=== PATIENT | male | born 1960 | race Caucasian/White ===

== ENCOUNTER 2018-12-01 20:16 | Inpatient (IN) | payer MEDICARE, MEDICAID ==
[~2018-12-01] VITALS: Ht 182.9 cm; Wt 89.4 kg
[2018-12-01 22:21] VITALS: BP 136/100
[2018-12-01] MEDS ORDERED: LORazepam 2 MG TABLET PO PRN (23:15)
[2018-12-01] MEDS ORDERED: HALOPERIDOL 5 MG TABLET PO PRN (23:15)
[2018-12-01] MEDS ORDERED: ZOLPIDEM TARTRATE 10 MG TABLET PO PRN (23:15)
[2018-12-02 00:17] VITALS: BP 140/81
[2018-12-02] MEDS ORDERED: AMLO-512 PO (01:20)
[2018-12-02] MEDS ORDERED: ALBU8HFA IH (01:20)
[2018-12-02] MEDS ORDERED: DULO60CA44 PO (01:20)
[2018-12-02] MEDS ORDERED: TAMS-1 PO (01:20)
[2018-12-02] MEDS ORDERED: LISI-662 PO (01:20)
[2018-12-02] MEDS ORDERED: PNEUMOCOCCAL VACCINE POLYVALENT 0.5 ML VIAL [PPSV23] IM ONE (01:45)
[2018-12-02] MEDS ORDERED: NICOTINE 14 MG/24 HOUR PATCH TD PRN (06:30)
[2018-12-02] MEDS ORDERED: GuaiFENesin/D-METHORPHAN [SUGAR-FREE] 200-20MG/10 ML SYRUP UDCUP PO PRN (06:30)
[2018-12-02] MEDS ORDERED: CloNIDine HCL 0.1 MG TABLET PO PRN (06:30)
[2018-12-02] MEDS ORDERED: LOPERAMIDE HCL 2 MG CAPSULE PO PRN (06:30)
[2018-12-02] MEDS ORDERED: ACETAMINOPHEN 325 MG TABLET PO PRN (06:30)
[2018-12-02] MEDS ORDERED: ONDANSETRON HCL 4 MG TABLET PO PRN (06:30)
[2018-12-02] MEDS ORDERED: MAG HYDROX/AL HYDROX/SIMETH ES 30 ML SUSPENSION UDCUP PO PRN (06:30)
[2018-12-02] MEDS ORDERED: IBUPROFEN 400 MG TABLET PO PRN (06:30)
[2018-12-02] MEDS ORDERED: MAGNESIUM HYDROXIDE SUSPENSION 30 ML UDCUP PO PRN (06:30)
[2018-12-02] MEDS ORDERED: DOCUSATE SODIUM 100 MG CAPSULE PO PRN (06:30)
[2018-12-02] MEDS ORDERED: PETROLATUM,WHITE 28 GM JELLY TP PRN (06:30)
[2018-12-02 08:31] LABS: BASOPHILS % (AUTO) 0.4 % (0.0-2.0); EOSINOPHILS % (AUTO) 3.5 % (1.0-6.0); HEMATOCRIT 39.2 % (41-53); HEMOGLOBIN 13.2 g/dL (13.5-17.5); LYMPHOCYTES % (AUTO) 29.6 % (22.0-44.0); MEAN CORPUSCULAR HEMOGLOBIN 29.8 pg (26.0-34.0); MEAN CORPUSCULAR HGB CONC 33.6 G/dL (31.0-37.0); MEAN CORPUSCULAR VOLUME 89 fL (80-100); MONOCYTES # (AUTO) 0.7 K/uL (0.1-1.0); MONOCYTES % (AUTO) 10.3 % (2.0-9.0); NEUTROPHILS # (AUTO) 3.7 K/uL (1.8-7.7); NEUTROPHILS % (AUTO) 56.2 % (40.0-70.0); PLATELET COUNT (AUTO) 257 K/uL (150-450); RED BLOOD CELL COUNT(AUTO) 4.41 MIL/uL (4.50-5.90); RED CELL DISTRIBUTION WIDTH 13.7 % (11.5-14.5)
[2018-12-02 08:45] LABS: ALANINE AMINOTRANSFERASE 26 U/L (12-78); ALBUMIN 3.6 g/dL (3.4-5.0); ALKALINE PHOSPHATASE 65 U/L (46-116); ANION GAP 10 mmol/L (8-16); ASPARTATE AMINOTRANSFERASE 19 U/L (15-37); BILIRUBIN,TOTAL 0.9 mg/dL (0.1-1.0); CALCIUM, TOTAL 8.7 mg/dL (8.8-10.5); CARBON DIOXIDE 27 mmol/L (22-29); CHLORIDE 103 mmol/L (98-107); CHOL/HDL RATIO 5.1 (4.2-7.3); CHOLESTEROL 164 mg/dL (131-200); CREATININE 0.79 mg/dL (0.60-1.30); FREE T4 (FREE THYROXINE) 0.83 ng/dL (0.76-1.46); GLOMERULAR FILTR. RATE CALC > 60 mL/min (>60); GLUCOSE,RANDOM 101 mg/dL (70-110); HDL CHOLESTEROL 32 mg/dL (40-60); LDL CHOL (CALC.) 112 mg/dL (0-130); POTASSIUM 3.4 mmol/L (3.5-5.1); SODIUM SERUM 140 mmol/L (136-145); THYROID STIMULATING HORMONE 0.49 uIU/mL (0.36-3.74); TOTAL PROTEIN, SERUM 7.4 g/dL (6.4-8.2); TRIGLYCERIDES 99 mg/dL (15-150); UREA NITROGEN, BLOOD 10 mg/dL (7-18)
[2018-12-02 08:57] VITALS: BP 120/81
[2018-12-02 09:17] LABS: HEMOGLOBIN A1C 7.1 % (4.5-6.2)
[2018-12-02] MEDS: TAMSULOSIN HCL 0.4 MG CAPSULE PO SCH (09:54)
[2018-12-02] MEDS: AmLODIPine BESYLATE 10 MG TABLET PO SCH (09:54)
[2018-12-02] MEDS: LISINOPRIL 20 MG TABLET PO SCH (09:54)
[2018-12-02] MEDS ORDERED: POTASSIUM CHLORIDE 20 MEQ ER TABLET PO ONE (10:15)
[2018-12-02] MEDS: PHENAZOPYRIDINE HCL 200 MG TABLET PO SCH ×2 (12:19→16:51)
[2018-12-02] MEDS: DULoxetine HCL 60 MG CAPSULE PO SCH (12:19)
[2018-12-02 16:15] VITALS: BP 107/73
[2018-12-02] MEDS: MetFORMIN HCL 500 MG TABLET PO SCH (16:51)
[2018-12-02] MEDS: ALBUTEROL SULFATE HFA 90 MCG/PUFF 8 GM INHALER IH PRN (18:40)
[2018-12-03 00:05] VITALS: BP 138/91
[2018-12-03] MEDS: ALBUTEROL SULFATE HFA 90 MCG/PUFF 8 GM INHALER IH PRN ×2 (02:42→20:26)
[2018-12-03] MEDS: MetFORMIN HCL 500 MG TABLET PO SCH ×2 (07:07→16:35)
[2018-12-03 07:14] LABS: GLUCOMETER DEV NAME(LOC) BV2S.; GLUCOSE,POINT OF CARE 109 MG/DL (70-110)
[2018-12-03 08:20] VITALS: BP 100/76
[2018-12-03 08:38] VITALS: BP 122/73
[2018-12-03] MEDS: LISINOPRIL 20 MG TABLET PO SCH (08:38)
[2018-12-03] MEDS: AmLODIPine BESYLATE 10 MG TABLET PO SCH (08:38)
[2018-12-03] MEDS: PHENAZOPYRIDINE HCL 200 MG TABLET PO SCH ×3 (08:39→16:35)
[2018-12-03] MEDS: DULoxetine HCL 60 MG CAPSULE PO SCH (08:39)
[2018-12-03] MEDS: TAMSULOSIN HCL 0.4 MG CAPSULE PO SCH (08:39)
[2018-12-03 08:53] LABS: BASOPHILS % (AUTO) 0.4 % (0.0-2.0); EOSINOPHILS % (AUTO) 3.8 % (1.0-6.0); HEMATOCRIT 40.6 % (41-53); HEMOGLOBIN 13.8 g/dL (13.5-17.5); LYMPHOCYTES # (AUTO) 1.8 K/uL (1.0-4.8); LYMPHOCYTES % (AUTO) 26.6 % (22.0-44.0); MEAN CORPUSCULAR HGB CONC 33.9 G/dL (31.0-37.0); MEAN CORPUSCULAR VOLUME 89 fL (80-100); MONOCYTES # (AUTO) 0.7 K/uL (0.1-1.0); MONOCYTES % (AUTO) 9.9 % (2.0-9.0); NEUTROPHILS # (AUTO) 4.1 K/uL (1.8-7.7); NEUTROPHILS % (AUTO) 59.3 % (40.0-70.0); PLATELET COUNT (AUTO) 251 K/uL (150-450); RED BLOOD CELL COUNT(AUTO) 4.58 MIL/uL (4.50-5.90)
[2018-12-03 09:02] LABS: APPEARANCE,URINE CLEAR (CLEAR); BILIRUBIN,URINE NEGATIVE (NEGATIVE); GLUCOSE, URINE (UA) NEGATIVE (NEGATIVE); KETONES,URINE NEGATIVE (NEGATIVE); LEUKOCYTE ESTERASE ,URINE NEGATIVE (NEGATIVE); NITRATE,URINE NEGATIVE (NEGATIVE); OCCULT BLOOD,URINE NEGATIVE (NEGATIVE); PROTEIN,URINE NEGATIVE (NEGATIVE); UROBILINOGEN,URINE 0.2 mg/dL (<=1.0)
[2018-12-03 09:13] LABS: HEMOGLOBIN A1C 7.1 % (4.5-6.2)
[2018-12-03 09:14] LABS: AMPHET/METH SCREEN,URINE NEGATIVE (NEGATIVE); BARBITURATE SCREEN, URINE NEGATIVE (NEGATIVE); BENZODIAZEPINES SCREEN,URINE NEGATIVE (NEGATIVE); CANNABINOID SCREEN,URINE NEGATIVE (NEGATIVE); COCAINE SCREEN,URINE NEGATIVE (NEGATIVE); METHADONE SCREEN, URINE NEGATIVE (NEGATIVE); OPIATE SCREEN,URINE NEGATIVE (NEGATIVE)
[2018-12-03 09:30] LABS: PHENCYCLIDINE SCREEN,URINE NEGATIVE (NEGATIVE)
[2018-12-03 09:40] LABS: ALANINE AMINOTRANSFERASE 26 U/L (12-78); ALBUMIN 3.7 g/dL (3.4-5.0); ALKALINE PHOSPHATASE 69 U/L (46-116); ANION GAP 9 mmol/L (8-16); ASPARTATE AMINOTRANSFERASE 22 U/L (15-37); CARBON DIOXIDE 30 mmol/L (22-29); CHLORIDE 102 mmol/L (98-107); CHOL/HDL RATIO 5.3 (4.2-7.3); CHOLESTEROL 164 mg/dL (131-200); CREATININE 0.89 mg/dL (0.60-1.30); GLOMERULAR FILTR. RATE CALC > 60 mL/min (>60); GLUCOSE,RANDOM 108 mg/dL (70-110); HDL CHOLESTEROL 31 mg/dL (40-60); LDL CHOL (CALC.) 107 mg/dL (0-130); POTASSIUM 3.9 mmol/L (3.5-5.1); SODIUM SERUM 141 mmol/L (136-145); THYROID STIMULATING HORMONE 0.78 uIU/mL (0.36-3.74); TOTAL PROTEIN, SERUM 7.3 g/dL (6.4-8.2); TRIGLYCERIDES 129 mg/dL (15-150); UREA NITROGEN, BLOOD 10 mg/dL (7-18)
[2018-12-03 16:07] VITALS: BP 107/73
[2018-12-03 16:24] LABS: GLUCOMETER DEV NAME(LOC) BV2S.; GLUCOSE,POINT OF CARE 137 MG/DL (70-110)
[2018-12-03] MEDS: MIRTAZAPINE 15 MG TABLET PO SCH (20:31)
[2018-12-04 00:34] VITALS: BP 139/72
[2018-12-04] MEDS: MetFORMIN HCL 500 MG TABLET PO SCH ×2 (07:07→16:41)
[2018-12-04 07:34] LABS: GLUCOMETER DEV NAME(LOC) BV2S.; GLUCOSE,POINT OF CARE 107 MG/DL (70-110)
[2018-12-04 08:24] VITALS: BP 118/69
[2018-12-04] MEDS: TAMSULOSIN HCL 0.4 MG CAPSULE PO SCH (08:48)
[2018-12-04] MEDS: AmLODIPine BESYLATE 10 MG TABLET PO SCH (08:48)
[2018-12-04] MEDS: LISINOPRIL 20 MG TABLET PO SCH (08:48)
[2018-12-04] MEDS: DULoxetine HCL 60 MG CAPSULE PO SCH (08:48)
[2018-12-04] MEDS: PHENAZOPYRIDINE HCL 200 MG TABLET PO SCH ×3 (08:48→16:40)
[2018-12-04] MEDS: ALBUTEROL SULFATE HFA 90 MCG/PUFF 8 GM INHALER IH PRN (14:01)
[2018-12-04 16:00] VITALS: BP 123/80
[2018-12-04 16:14] LABS: GLUCOMETER DEV NAME(LOC) BV2S.; GLUCOSE,POINT OF CARE 124 MG/DL (70-110)
[2018-12-04] MEDS ORDERED: PSYLLIUM SEED ORANGE SF 5.8 GM/PACKET PO PRN (16:30)
[2018-12-04] MEDS: MIRTAZAPINE 15 MG TABLET PO SCH (20:32)
[2018-12-05 02:07] VITALS: BP 129/84
[2018-12-05 06:19] LABS: GLUCOMETER DEV NAME(LOC) BV2S.; GLUCOSE,POINT OF CARE 105 MG/DL (70-110)
[2018-12-05] MEDS: MetFORMIN HCL 500 MG TABLET PO SCH ×2 (06:45→16:33)
[2018-12-05 08:15] VITALS: BP 122/67
[2018-12-05] MEDS: LISINOPRIL 20 MG TABLET PO SCH (09:04)
[2018-12-05] MEDS: PHENAZOPYRIDINE HCL 200 MG TABLET PO SCH ×3 (09:04→16:33)
[2018-12-05] MEDS: DULoxetine HCL 60 MG CAPSULE PO SCH (09:04)
[2018-12-05] MEDS: TAMSULOSIN HCL 0.4 MG CAPSULE PO SCH (09:04)
[2018-12-05] MEDS: AmLODIPine BESYLATE 10 MG TABLET PO SCH (09:04)
[2018-12-05 16:18] VITALS: BP 125/85
[2018-12-05 16:24] LABS: GLUCOMETER DEV NAME(LOC) BV2S.; GLUCOSE,POINT OF CARE 142 MG/DL (70-110)
[2018-12-05] MEDS: MIRTAZAPINE 15 MG TABLET PO SCH (20:40)
[2018-12-05] MEDS: ALBUTEROL SULFATE HFA 90 MCG/PUFF 8 GM INHALER IH PRN (23:01)
[2018-12-06 05:31] VITALS: BP 117/72
[2018-12-06] MEDS: MetFORMIN HCL 500 MG TABLET PO SCH (06:11)
[2018-12-06 06:34] LABS: GLUCOMETER DEV NAME(LOC) BV2S.; GLUCOSE,POINT OF CARE 104 MG/DL (70-110)
[2018-12-06 08:23] VITALS: BP 123/73
[2018-12-06] MEDS: TAMSULOSIN HCL 0.4 MG CAPSULE PO SCH (08:34)
[2018-12-06] MEDS: LISINOPRIL 20 MG TABLET PO SCH (08:34)
[2018-12-06] MEDS: PHENAZOPYRIDINE HCL 200 MG TABLET PO SCH ×2 (08:34→12:15)
[2018-12-06] MEDS: DULoxetine HCL 60 MG CAPSULE PO SCH (08:34)
[2018-12-06] MEDS: AmLODIPine BESYLATE 10 MG TABLET PO SCH (08:34)
[2018-12-06] MEDS ORDERED: METF-960 PO (14:00)
[2018-12-06] MEDS ORDERED: PHEN-922 PO (14:00)
[2018-12-06] MEDS ORDERED: MIRT15 PO (14:02)
[2018-12-06] MEDS ORDERED: DULO60CA44 PO (14:02)
== END 2018-12-06 14:54 | disposition home or self-care (01) | DRG 885 ==
LOC: B2X 23:14
DX: F33.2 Major depressive disorder, recurrent severe without psychotic features (principal); R45.851 Suicidal ideations; N40.0 Benign prostatic hyperplasia without lower urinary tract symptoms; J45.909 Unspecified asthma, uncomplicated; E11.9 Type 2 diabetes mellitus without complications; I10 Essential (primary) hypertension; E87.6 Hypokalemia; E78.5 Hyperlipidemia, unspecified; K59.00 Constipation, unspecified; Z59.0 Homelessness; Z65.3 Problems related to other legal circumstances; Z81.0 Family history of intellectual disabilities; Z91.040 Latex allergy status
CPT/HCPCS: 80307; 83036; 84439; 84443; J3535